=== PATIENT | female | born 1940 | race Caucasian/White ===

== ENCOUNTER 2019-12-23 10:55 | Outpatient (REF) | payer OTHER, MEDICARE, SELFPAY ==
--- NOTE | 2019-12-23 15:03 | MHC.AU.P13 ---
Adult Audiological Evaluation Date of Visit: 12/23/19 Reason for Appointment: Decreased hearing Does patient feel they have a hearing loss?: Yes If Yes, Which Ear?: Both Ears Has hearing been tested previously?: No Hearing Handicap Inventory: HHIE SCORE: 22 Based on HHIE score, patient has: Mild to moderate perceived hearing handicap Ear History: History of Ear Wax Buildup: Both Ears Medical History: Medical History: Headache Otoscopy: Right Ear: Totally occluding cerumen, successfully removed today Left Ear: Totally occluding cerumen, successfully removed today. Tympanometry: Right Ear: Reduced Middle Ear Compliance (Type As) Left Ear: Reduced Middle Ear Compliance (Type As) Hearing Evaluation: Transducer(s) Used: Insert Earphones, Bone Conduction Method: Conventional Audiometry Right Ear: Description of Hearing: Mild to moderately severe sensorineural hearing loss from 250-8000 Hz. Left Ear: Description of Hearing: Mild to severe sensorineural hearing loss from 250-8000 Hz. Left ear thresholds are 15-20 dBHL worse than the right at 1000, 2000, and 8000 Hz. Speech Recognition Threshold (SRT): Method Used: Monitored Live Voice Stimuli Used: Spondee Words Right Ear: 35 dBHL Left Ear: 45 dBHL Word Discrimination: Method: Recorded Lists Word Lists Used: NU-6 Right Ear: 92% at 75 dBHL Left Ear: 80% at 85 dBHL Recommendations: Recommendations: Audiological re-evaluation in one year. Trial with amplification is recommended. Medical clearance from a physician is required before fitting. Referral to Ear, Nose, and Throat is recommended. Recommendations (Other): Referral to ENT recommended to evaluate asymmetric hearing. Patient would benefit from binaural amplification and is welcome to return for a hearing aid evaluation following her ENT visit. Diagnosis: Primary Diagnosis: H90.3 Bilateral Sensorineural Hearing Loss Secondary Diagnosis: H61.23 Impacted Cerumen, Bilateral Services Performed: Services Performed: Comprehensive Audiological Evaluation (CPT 52609) Tympanometry (CPT 96850) Signature: Provider: Rowan Mckenzie, CCC-A
--- NOTE | 2019-12-23 15:07 | MHC.AU.P13 ---
Cerumen Removal- Binaural Date of Visit: 12/23/19 Procedure: Right Ear: Unusual Findings: Narrow Canal(s) Prior to Removal: Complete Occlusion Outcome of Procedure: All cerumen was removed. Tympanic membrane is now visible. Irritation/Redness Left Ear: Unusual Findings: Narrow Canal(s) Prior to Removal: Significant Cerumen Present Outcome of Procedure: All cerumen was removed. Tympanic membrane is now visible. Recommendations: Recommendations (Other): Recommend monthly use of earwax softening drops to help prevent build-up. Diagnosis Code(s): Primary Diagnosis: H90.3 Bilateral Sensorineural Hearing Loss Secondary Diagnosis: H61.23 Impacted Cerumen, Bilateral Services Performed: Comprehensive Audiological Evaluation (CPT 46769) Tympanometry (CPT 32219) Signature: Provider: Rowan Mckenzie, CCC-A
--- NOTE | 2019-12-23 15:10 | MHC.AU.P13 ---
Cerumen Removal- Binaural Date of Visit: 12/23/19 Procedure: Right Ear: Unusual Findings: Narrow Canal(s) Prior to Removal: Complete Occlusion Outcome of Procedure: All cerumen was removed. Tympanic membrane is now visible. Irritation/Redness Left Ear: Unusual Findings: Narrow Canal(s) Prior to Removal: Significant Cerumen Present Outcome of Procedure: All cerumen was removed. Tympanic membrane is now visible. Recommendations: Recommendations (Other): Monthly use of earwax softening drops to help prevent build-up. Diagnosis Code(s): Primary Diagnosis: H90.3 Bilateral Sensorineural Hearing Loss Secondary Diagnosis: H61.23 Impacted Cerumen, Bilateral Services Performed: Cerumen Removal (CPT 13915) Two Ears Signature: Provider: Rowan Mckenzie, CCC-A
== END 2019-12-23 10:56 | disposition home or self-care (01) ==
LOC: HO.SH 10:55
PROVIDERS: PCP Internal Medicine; Visit Provider Internal Medicine
DX: H90.3 Sensorineural hearing loss, bilateral (principal); H61.23 Impacted cerumen, bilateral
CPT/HCPCS: 92557; 92567; 92700